=== PATIENT | female | born 1960 | race Caucasian/White ===

== ENCOUNTER 2019-01-14 14:39 | Observation (INO) ==
[~2019-01-14 14:39] MED LIST: APRESOLINE INJ 20 MG VIAL ONE
[2019-01-14] MEDS ORDERED: NS 1000 ML 1,000 ML IV ONE (14:51)
[2019-01-14] MEDS ORDERED: ZOFRAN INJ 4 MG VIAL IVP ONE (14:51)
--- NOTE | 2019-01-14 14:53 | DR.NAUSEAF ---
HPI Time Seen Time Seen by Provider: 01/14/19 14:51 Primary Care Physician Primary Care Physician: KAILEY MAY Complaints Chief Complaint Doctors Comments: Pt is a 58yo female who presents for nausea and vomiting for 3-4 days. She states that she it became its worst yesterday. She states that she has not been able to hold down any food. Chest pain that is sharp stabling, last 3 hours, been present for several months, She has been vomiting greenish stuff. RUQ pain that is also diffuse. She states that the pain worsened with fatty foods. Last colonscopy was 3 years ago and EGD 10yrs ago. Hx of Reflux Chief Complaint:: PT C/O N/V AND ABD PAIN TIMES 3 DAYS, PT HAS APROX 200 ML OF DARK GREEN BILE NOTED ,,BR Reviewed Nurses Notes Reviewed: Yes Source History Provided: Patient and EMS Mode of Arrival Mode of Arrival: Stretcher Timing Onset of Chief Complaint: 01/12/19 PMH PMH Past Medical History: Yes Past Medical History: COPD and Hypertension Past Medical History Comment: BACK PAIN, NERVES Past Surgical History: Yes Past Surgical History Comment: TUBAL Family History History of Family Medical Conditions: No Social History Does patient currently use any type of tobacco product: Yes Have you used tobacco products in the last 12 months: No Type of Tobacco Use: Cigarettes Does any household member use tobacco: No Alcohol Use: None Do you use any recreational Drugs:: No Lives With: Family Lives Where: Home infectious screening In the last 2 months have you had wt loss of >10#?: NO Have you had fever, night sweats or hemotysis?: No Have you traveled outside the country in the last 6 months?: No Isolation: Standard ROS Review of Systems Constitutional: Fever and Weakness Eyes: No Symptoms Reported ENTM: No Symptoms Reported Respiratoy: No Symptoms Reported Cardiovascular: Chest Pain Gastrointestinal/Abdominal: Abdominal Pain, Nausea, Vomiting and Food Intolerance Genitourinary: No Symptoms Reported Neurological: No Symptoms Reported Integumentary: No Symptoms Reported, See HPI and Rash (on her back that has disappeared) Hematologic/Lymphatic: No Symptoms Reported Endocrine: No Symptoms Reported Psychiatric: No Symptoms Reported All Other Systems: Reviewed and Negative PE Vital Signs Vitals: Temperature 97.2 F Pulse Rate 123 Respiratory Rate 18 Blood Pressure 139/76 O2 Sat by Pulse Oximetry 98 General Limitations: No Limitations General Appearance: Alert and In Distress Head Head Exam: Normal Inspection, Atraumatic and Normocephalic Eyes Eye exam: Normal Appearance and EOMI ENT ENT Exam: Normal Exam and Mucous Membranes Dry Neck Neck Exam: Normal Inspection and Full ROM Chest Chest Inspection: Normal Inspection Respiratory Respiratory Exam: Normal Lung Sounds Bilat Respiratory Exam: Bilateral: Clear to Auscultation Cardiovascular Cardiovascular Exam: Tachycardia Abdominal Exam Abdominal Exam: Normal Bowel Sounds, Soft and Tenderness (diffuse, and epigastric/RUQ) Abdominal Tenderness: RUQ, Diffuse and Moderate Extremities Extremities Exam: Normal Inspection and Full ROM Back Back Exam: Normal Inspection and Other Psychiatric Psychiatric Exam: Normal Affect and Normal Mood Skin Skin Exam: Warm, Dry, Intact and Normal Color MDM Additional Information Obtained Additional Information Obtained From: Old Records and Family Differential Diagnosis Differential Diagnosis: Considerations may Include:: Cholecystitis and PUD COURSE Reevaluation 1st: Unchanged (17:00 still in pain, looks in distress) 2nd: Unchanged (18:12 still in pain) 3rd: Improved (20:[address] Rader, pt appears improved) Consultation Called: 20:30 Call Returned: 20:30 Consultation Comments: Dr. Rader advised admission. Education/Counseling Education/Counseling: Patient, Family, Education and Counseling Educated On: Treatment, Diagnosis, Prognosis, Needs for Follow Up and Other ROR Labs Reviewed Laboratory Results Reviewed?: Yes Result Diagrams: 01/14/19 15:11 01/14/19 15:11 Laboratory: WBC 9.0 X10^3/uL (3.6-10.0) 01/14/19 15:11 RBC 5.19 X10^6/uL (3.5-5.4) 01/14/19 15:11 Hgb 16.9 g/dL (12.0-16.0) H 01/14/19 15:11 Hct 47.9 % (36.0-47.0) H 01/14/19 15:11 MCV 92.4 fL (80.0-100.0) 01/14/19 15:11 MCH 32.7 pg (27.0-34.0) 01/14/19 15:11 MCHC 35.4 g/dL (33.0-35.0) H 01/14/19 15:11 RDW 13.7 % (11.6-16.5) 01/14/19 15:11 Plt Count 267 X10^3/uL (150.0-450.0) 01/14/19 15:11 MPV 7.6 fL (7.4-11.0) 01/14/19 15:11 Neut % (Auto) 79.4 % (42.0-75.0) H 01/14/19 15:11 Lymph % (Auto) 13.6 % (21.0-51.0) L 01/14/19 15:11 [place] % (Auto) 5.5 % (0.0-13.0) 01/14/19 15:11 Eos % (Auto) 0.8 % (0.9-2.9) L 01/14/19 15:11 Baso % (Auto) 0.7 % (0.2-1.0) 01/14/19 15:11 Neut # (Auto) 7.2 x10^3/uL (2.2-4.8) H 01/14/19 15:11 Lymph # (Auto) 1.2 X10^3/uL (1.3-2.9) L 01/14/19 15:11 [place] # (Auto) 0.5 x10^3/uL (0.3-0.8) 01/14/19 15:11 Eos # (Auto) 0.1 x10^3/uL (0.0-0.2) 01/14/19 15:11 Baso # (Auto) 0.1 X10^3/uL (0.0-0.1) 01/14/19 15:11 Absolute Nucleated RBC 0.1 /100WBC 01/14/19 15:11 Sodium 140 mmol/L (136-145) 01/14/19 15:11 Corrected Sodium 141 mmol/L (136-145) 01/14/19 15:11 Potassium 4.3 mmol/L (3.5-5.1) 01/14/19 15:11 Chloride 104 mmol/L (98-107) 01/14/19 15:11 Carbon Dioxide 23.3 mmol/L (21-32) 01/14/19 15:11 BUN 6 mg/dL (7-18) L 01/14/19 15:11 Creatinine 0.79 mg/dL (0.55-1.02) 01/14/19 15:11 Est GFR (MDRD) Af Amer > 60 (>60) 01/14/19 15:11 Est GFR (MDRD) Non-Af > 60 (>60) 01/14/19 15:11 Glucose 121 mg/dL (65-99) H 01/14/19 15:11 Calcium 9.4 mg/dL (8.5-10.1) 01/14/19 15:11 Corrected Calcium TNP 01/14/19 15:11 Total Bilirubin 0.40 mg/dL (0.2-1.0) 01/14/19 15:11 AST 24 Units/L (15-37) 01/14/19 15:11 ALT 26 Units/L (12-78) 01/14/19 15:11 Alkaline Phosphatase 75 Units/L (46-116) 01/14/19 15:11 Creatine Kinase 137 Units/L (26-192) 01/14/19 23:56 CK-MB (CK-2) 1.1 ng/mL (0-4.0) 01/14/19 23:56 CK/CKMB % Calc 0.8 % (<4) 01/14/19 23:56 Troponin I < 0.02 ng/mL (0-1.5) 01/14/19 23:56 Total Protein 7.6 g/dL (6.4-8.2) 01/14/19 15:11 Albumin 3.8 g/dL (3.4-5.0) 01/14/19 15:11 Globulin 3.8 g/dL (2.5-4.5) 01/14/19 15:11 Albumin/Globulin Ratio 1.0 Ratio (1.1-2.1) L 01/14/19 15:11 Amylase 35 Units/L (25-115) 01/14/19 15:11 Lipase 104 Units/L (73-393) 01/14/19 15:11 Specimen Type Clean catch urine 01/14/19 20:30 Urine Color Yellow (YELLOW) 01/14/19 20:30 Urine Appearance Clear (CLEAR) 01/14/19 20:30 Urine pH 7.0 (5.0 - 8.0) 01/14/19 20:30 Ur Specific [place] 1.010 (1.000-1.030) 01/14/19 20:30 Urine Protein Negative (NEGATIVE) 01/14/19 20:30 Urine Glucose (UA) Negative (NEGATIVE) 01/14/19 20:30 Urine Ketones 1+ (NEGATIVE) 01/14/19 20:30 Urine Occult Blood Negative (NEGATIVE) 01/14/19 20:30 Urine Nitrite Negative (NEGATIVE) 01/14/19 20:30 Urine Bilirubin Negative (NEGATIVE) 01/14/19 20:30 Urine Urobilinogen Normal (NORMAL) 01/14/19 20:30 Ur Leukocyte Esterase Negative (NEGATIVE) 01/14/19 20:30 Service Date: 01/14/19 Service Time: 1826 CT abdomen and pelvis with contrast Indication: Nausea and vomiting. Abdominal pain. Bilious vomiting Technique: Helical images through the abdomen and pelvis after IV contrast. Coronal and sagittal reformats provided. Comparison: None available Findings: Limited images through the lower chest shows no acute abnormality. Review of bone windows shows spine DJD without destructive osseous lesion. Abdomen: The liver, gallbladder, spleen, pancreas, adrenal glands, stomach and small bowel show no acute abnormality. There is no acute colonic abnormality. The appendix is normal. Scattered aortic and branch vessel calcifications are noted. Right gonadal vein thrombus suspected on axial image 54. Scarring seen in the left kidney, without hydroureteronephrosis. There is nonobstructing left renal stone. The right kidney is normal. Pelvis: The urinary bladder, rectum are normal. Uterus and adnexa shows no acute abnormality. Impression: 1. Probable thrombus in the right gonadal vein. 2. Nonobstructing left lower pole renal stone 3. No other acute abnormality identified. Reported By: Other Results Comments: Study: Right upper quadrant abdominal ultrasound Comparison: None. Technique: Multiple arguelles scale and color flow Doppler images of the right upper quadrant were obtained. Findings: The liver demonstrates mild diffuse increased parenchymal echogenicity and measures 15 cm. Interrogated hepatic vasculature demonstrates normal color Doppler and spectral analysis. No focal intraparenchymal mass or intrahepatic biliary ductal dilatation can be observed. The gallbladder fails to demonstrate evidence for cholelithiasis or layering sludge. The common bile duct is unremarkable measuring 0.2 cm. No pericholecystic fluid or gallbladder wall thickening can be observed. The right kidney appears normal in size without focal parenchymal mass or nephrolithiasis. The right kidney measurers 10 cm. No hydronephrosis or perirenal fluid can be observed. The pancreatic head and body are unremarkable. The pancreatic tail is largely obscured by overlying bowel gas. IMPRESSION: 1. Hepatic steatosis, correlate with serology. 2. Unremarkable gallbladder. EKG Rate: 91 [place]: Normal Rhythm: NSR Block: None Hypertrophy: LAE ST: Normal Opioid Opioid Risk Tool Total: 0 Total Score Risk Category: Low Risk Copyright: Eric ATKINSON predicting aberrant behaviors Diagnosis Narrative Support Text: Admission accepted and discussed with Dr. Holland ( 23;45) for consult by Dr. Rader plan and detail discussed with him.
[2019-01-14] MEDS ORDERED: NS 1000 ML 1,000 ML ONE (14:56)
[2019-01-14] MEDS ORDERED: ZOFRAN INJ 4 MG VIAL ONE (14:56)
[2019-01-14 15:20] LABS: BASOPHILS # (AUTO) 0.1 X10^3/uL (0.0-0.1); BASOPHILS % (AUTO) 0.7 % (0.2-1.0); EOSINOPHILS # (AUTO) 0.1 x10^3/uL (0.0-0.2); EOSINOPHILS % (AUTO) 0.8 % (0.9-2.9); HEMATOCRIT 47.9 % (36.0-47.0); HEMOGLOBIN 16.9 g/dL (12.0-16.0); LYMPHOCYTES # (AUTO) 1.2 X10^3/uL (1.3-2.9); LYMPHOCYTES % (AUTO) 13.6 % (21.0-51.0); MEAN CORPUSCULAR HEMOGLOBIN 32.7 pg (27.0-34.0); MEAN CORPUSCULAR HGB CONC 35.4 g/dL (33.0-35.0); MEAN CORPUSCULAR VOLUME 92.4 fL (80.0-100.0); MEAN PLATELET VOLUME 7.6 fL (7.4-11.0); MONOCYTES # (AUTO) 0.5 x10^3/uL (0.3-0.8); MONOCYTES % (AUTO) 5.5 % (0.0-13.0); NEUTROPHILS # (AUTO) 7.2 x10^3/uL (2.2-4.8); NEUTROPHILS % (AUTO) 79.4 % (42.0-75.0); PLATELET COUNT 267 X10^3/uL (150.0-450.0); RED BLOOD COUNT 5.19 X10^6/uL (3.5-5.4); RED CELL DISTRIBUTION WIDTH 13.7 % (11.6-16.5)
[2019-01-14] MEDS ORDERED: APRESOLINE INJ 20 MG VIAL IVP ONE (15:38)
[2019-01-14] MEDS ORDERED: APRESOLINE INJ 20 MG VIAL ONE (15:39)
[2019-01-14 15:40] LABS: ALANINE AMINOTRANSFERASE 26 Units/L (12-78); ALBUMIN 3.8 g/dL (3.4-5.0); ALKALINE PHOSPHATASE 75 Units/L (46-116); ASPARTATE AMINO TRANSFERASE 24 Units/L (15-37); BLOOD UREA NITROGEN 6 mg/dL (7-18); CALCIUM 9.4 mg/dL (8.5-10.1); CARBON DIOXIDE 23.3 mmol/L (21-32); CHLORIDE 104 mmol/L (98-107); COR NA(FOR HYPERGLY) 141 mmol/L (136-145); CREATININE 0.79 mg/dL (0.55-1.02); SODIUM 140 mmol/L (136-145); TOTAL PROTEIN 7.6 g/dL (6.4-8.2); eGFR NON BLACK RACES > 60 (>60)
[2019-01-14 15:48] LABS: CREATINE KINASE 49 Units/L (26-192); CREATINE KINASE MB < 1.0 ng/mL (0-4.0); TROPONIN I < 0.02 ng/mL (0-1.5)
[2019-01-14] MEDS ORDERED: MORPHINE SULFATE INJ 2 MG INJ ONE ×3 (16:34→20:07)
[2019-01-14] MEDS ORDERED: MORPHINE SULFATE INJ 2 MG INJ IVP ONE ×3 (16:38→20:05)
[2019-01-14] MEDS ORDERED: PHENERGAN INJ 25 MG IM ONE ×4 (16:41→23:48)
[2019-01-14] MEDS ORDERED: PHENERGAN INJ 25 MG IM PRN (16:51)
[2019-01-14 18:43] LABS: AMYLASE 35 Units/L (25-115); LIPASE 104 Units/L (73-393)
[2019-01-14 19:52] LABS: CKMB % 3.3 % (<4); CREATINE KINASE 30 Units/L (26-192); CREATINE KINASE MB < 1.0 ng/mL (0-4.0); TROPONIN I < 0.02 ng/mL (0-1.5)
--- NOTE | 2019-01-14 19:53 | CT ---
CT abdomen and pelvis with contrast Indication: Nausea and vomiting. Abdominal pain. Bilious vomiting Technique: Helical images through the abdomen and pelvis after IV contrast. Coronal and sagittal reformats provided. Comparison: None available Findings: Limited images through the lower chest shows no acute abnormality. Review of bone windows shows spine DJD without destructive osseous lesion. Abdomen: The liver, gallbladder, spleen, pancreas, adrenal glands, stomach and small bowel show no acute abnormality. There is no acute colonic abnormality. The appendix is normal. Scattered aortic and branch vessel calcifications are noted. Right gonadal vein thrombus suspected on axial image 54. Scarring seen in the left kidney, without hydroureteronephrosis. There is nonobstructing left renal stone. The right kidney is normal. Pelvis: The urinary bladder, rectum are normal. Uterus and adnexa shows no acute abnormality. Impression: 1. Probable thrombus in the right gonadal vein. 2. Nonobstructing left lower pole renal stone 3. No other acute abnormality identified. Reported By:
[2019-01-14 20:40] LABS: BILIRUBIN,URINE NEGATIVE (NEGATIVE); BLOOD/HEMOGLOBIN,URINE NEGATIVE (NEGATIVE); GLUCOSE, URINE NEGATIVE (NEGATIVE); KETONES,URINE 1+ (NEGATIVE); LEUKOCYTE ESTERASE ,URINE NEGATIVE (NEGATIVE); NITRITES,URINE NEGATIVE (NEGATIVE); PROTEIN,URINE NEGATIVE (NEGATIVE); UROBILINOGEN,URINE NORMAL (NORMAL)
[2019-01-14 20:49] LABS: APPEARANCE,URINE CLEAR (CLEAR); COLOR,URINE YELLOW (YELLOW)
[2019-01-14] MEDS ORDERED: PROTONIX INJ 40 MG VIAL IVP ONE (20:50)
[2019-01-14] MEDS ORDERED: PROTONIX INJ 40 MG VIAL ONE (20:52)
--- NOTE | 2019-01-14 21:53 | US ---
HISTORY: 58-year-old female with abdominal pain, nausea vomiting. Study: Right upper quadrant abdominal ultrasound Comparison: None. Technique: Multiple arguelles scale and color flow Doppler images of the right upper quadrant were obtained. Findings: The liver demonstrates mild diffuse increased parenchymal echogenicity and measures 15 cm. Interrogated hepatic vasculature demonstrates normal color Doppler and spectral analysis. No focal intraparenchymal mass or intrahepatic biliary ductal dilatation can be observed. The gallbladder fails to demonstrate evidence for cholelithiasis or layering sludge. The common bile duct is unremarkable measuring 0.2 cm. No pericholecystic fluid or gallbladder wall thickening can be observed. The right kidney appears normal in size without focal parenchymal mass or nephrolithiasis. The right kidney measurers 10 cm. No hydronephrosis or perirenal fluid can be observed. The pancreatic head and body are unremarkable. The pancreatic tail is largely obscured by overlying bowel gas. IMPRESSION: 1. Hepatic steatosis, correlate with serology. 2. Unremarkable gallbladder. Reported By:
[2019-01-14] MEDS: MORPHINE SULFATE INJ 4 MG IVP PRN (23:50)
[2019-01-14] MEDS ORDERED: ROCEPHIN VIAL 1 GRAM IM ONE (23:55)
[2019-01-14] MEDS ORDERED: APRESOLINE INJ 20 MG VIAL IVP PRN (23:59)
[2019-01-15] MEDS ORDERED: ROCEPHIN VIAL 1 GRAM IVP ONE
[2019-01-15] MEDS ORDERED: ROCEPHIN VIAL 1 GRAM ONE (00:01)
[2019-01-15] MEDS: NS 1000 ML 1,000 ML IV SCH ×3 (00:03→16:57)
[2019-01-15 00:36] LABS: CKMB % 0.8 % (<4); CREATINE KINASE 137 Units/L (26-192); CREATINE KINASE MB 1.1 ng/mL (0-4.0); TROPONIN I < 0.02 ng/mL (0-1.5)
[2019-01-15] MEDS ORDERED: MOTRIN TAB 400 MG PO ONE ×2 (00:53→00:54)
[2019-01-15 02:12] VITALS: BMI 26.6
[2019-01-15] MEDS: XOPENEX 1.25 MG/3 ML NEBULE NEB SCH ×4 (05:50→21:20)
[2019-01-15 06:05] LABS: BASOPHILS # (AUTO) 0.1 X10^3/uL (0.0-0.1); BASOPHILS % (AUTO) 0.9 % (0.2-1.0); EOSINOPHILS % (AUTO) 0.4 % (0.9-2.9); HEMOGLOBIN 14.3 g/dL (12.0-16.0); LYMPHOCYTES # (AUTO) 2.5 X10^3/uL (1.3-2.9); LYMPHOCYTES % (AUTO) 32.2 % (21.0-51.0); MEAN CORPUSCULAR HEMOGLOBIN 32.3 pg (27.0-34.0); MEAN CORPUSCULAR HGB CONC 34.9 g/dL (33.0-35.0); MEAN CORPUSCULAR VOLUME 92.4 fL (80.0-100.0); MEAN PLATELET VOLUME 7.7 fL (7.4-11.0); MONOCYTES # (AUTO) 0.7 x10^3/uL (0.3-0.8); MONOCYTES % (AUTO) 9.3 % (0.0-13.0); NEUTROPHILS # (AUTO) 4.5 x10^3/uL (2.2-4.8); NEUTROPHILS % (AUTO) 57.2 % (42.0-75.0); PLATELET COUNT 229 X10^3/uL (150.0-450.0); RED BLOOD COUNT 4.44 X10^6/uL (3.5-5.4); RED CELL DISTRIBUTION WIDTH 13.6 % (11.6-16.5); WHITE BLOOD COUNT 7.9 X10^3/uL (3.6-10.0)
[2019-01-15 06:18] LABS: ALANINE AMINOTRANSFERASE 17 Units/L (12-78); ALBUMIN 3.1 g/dL (3.4-5.0); ALKALINE PHOSPHATASE 56 Units/L (46-116); ASPARTATE AMINO TRANSFERASE 20 Units/L (15-37); BLOOD UREA NITROGEN 6 mg/dL (7-18); CALCIUM 8.3 mg/dL (8.5-10.1); CARBON DIOXIDE 23.2 mmol/L (21-32); CHLORIDE 108 mmol/L (98-107); CREATININE 0.84 mg/dL (0.55-1.02); SODIUM 141 mmol/L (136-145); TOTAL PROTEIN 6.5 g/dL (6.4-8.2); eGFR NON BLACK RACES > 60 (>60)
[2019-01-15] MEDS ORDERED: K-RIDER 10 MEQ/NS 100 ML 10 MEQ/100 ML BAG IV PRN (06:27)
[2019-01-15] MEDS ORDERED: K-DUR TAB 20 MEQ PO PRN (06:27)
[2019-01-15] MEDS ORDERED: MICRO K EXTEN CAP 10 MEQ PO PRN (06:27)
[2019-01-15] MEDS ORDERED: POTASSIUM CHL 60 MEQ/NS 0.45% 500 ML IV PRN (06:27)
[2019-01-15] MEDS ORDERED: POTASSIUM CHL 40 MEQ/NS 0.45% 500 ML IV PRN (06:27)
[2019-01-15] MEDS ORDERED: MAGNESIUM SULFATE 1 GRAM/100 mL PREMIX 1 GM/100 ML BAG IV PRN (06:27)
[2019-01-15] MEDS ORDERED: KLOR-CON PO PRN (06:27)
[2019-01-15] MEDS ORDERED: POTASSIUM CHLORIDE LIQ 20 MEQ UDC PO PRN (06:27)
[2019-01-15] MEDS: MORPHINE SULFATE INJ 4 MG IVP PRN ×4 (06:38→20:27)
[2019-01-15] MEDS ORDERED: PHARMACY CONSULT - DOSE _____ XX SCH (09:00)
[2019-01-15] MEDS ORDERED: POTASSIUM ACETATE IV ONE ×2 (09:02)
[2019-01-15] MEDS ORDERED: NS IV ONE ×2 (09:02)
[2019-01-15] MEDS ORDERED: VERSED ONE (10:41)
[2019-01-15] MEDS ORDERED: DIPRIVAN VIAL ONE (10:41)
[2019-01-15] MEDS ORDERED: DIPRIVAN VIAL 20 ML ONE (11:04)
[2019-01-15] MEDS ORDERED: XYLOCAINE-MPF 1% ONE (11:05)
--- NOTE | 2019-01-15 11:38 | OR.IMMED ---
Immediate Post-Op Note - Immediate Post-Op Note Pre-Op Diagnosis: PUD, Gastritis . Post-Op Diagnosis: moderate gastritis and esophagitis grade 2. Procedure: EGD with Bx Surgeon/Eligibility Supervisor: Marline Specimens Removed: gastric and duodenal Bx Drains: NONE Complications: no Condition: Stable (will follow in the office in one week)
[2019-01-15] MEDS: ZOFRAN INJ 4 MG VIAL IVP PRN (11:58)
[2019-01-15] MEDS ORDERED: STERILE WATER IRRIGATION ONE (14:12)
[2019-01-15] MEDS ORDERED: NICOTINE PATCH ONE (17:33)
[2019-01-15] MEDS: NICOTINE PATCH TD SCH (17:34)
[2019-01-15] MEDS ORDERED: ATARAX TAB 25 MG PO PRN (19:44)
[2019-01-15] MEDS ORDERED: TESSALON PERLES PO PRN (19:44)
[2019-01-15] MEDS: ATIVAN TAB 1 MG PO SCH (21:21)
[2019-01-15] MEDS: LYRICA CAP 150 MG PO SCH (21:21)
[2019-01-15] MEDS: PREDNISONE TAB 20 MG PO SCH (21:21)
[2019-01-16] MEDS: NS 1000 ML 1,000 ML IV SCH ×6 (02:10→19:08)
[2019-01-16] MEDS: XOPENEX 1.25 MG/3 ML NEBULE NEB SCH ×3 (05:52→20:06)
[2019-01-16] MEDS: ATIVAN TAB 1 MG PO SCH ×3 (06:21→21:01)
[2019-01-16 06:35] LABS: BASOPHILS % (AUTO) 0.4 % (0.2-1.0); EOSINOPHILS % (AUTO) 0.1 % (0.9-2.9); HEMOGLOBIN 13.8 g/dL (12.0-16.0); LYMPHOCYTES % (AUTO) 13.1 % (21.0-51.0); MEAN CORPUSCULAR HEMOGLOBIN 32.6 pg (27.0-34.0); MEAN CORPUSCULAR HGB CONC 34.5 g/dL (33.0-35.0); MEAN CORPUSCULAR VOLUME 94.4 fL (80.0-100.0); MEAN PLATELET VOLUME 7.9 fL (7.4-11.0); MONOCYTES # (AUTO) 0.2 x10^3/uL (0.3-0.8); MONOCYTES % (AUTO) 2.9 % (0.0-13.0); NEUTROPHILS # (AUTO) 6.7 x10^3/uL (2.2-4.8); NEUTROPHILS % (AUTO) 83.5 % (42.0-75.0); PLATELET COUNT 217 X10^3/uL (150.0-450.0); RED BLOOD COUNT 4.24 X10^6/uL (3.5-5.4); RED CELL DISTRIBUTION WIDTH 13.7 % (11.6-16.5)
[2019-01-16 06:50] LABS: ALANINE AMINOTRANSFERASE 20 Units/L (12-78); ALBUMIN 2.8 g/dL (3.4-5.0); ALKALINE PHOSPHATASE 52 Units/L (46-116); ASPARTATE AMINO TRANSFERASE 20 Units/L (15-37); BLOOD UREA NITROGEN 5 mg/dL (7-18); CALCIUM 8.5 mg/dL (8.5-10.1); CARBON DIOXIDE 21.3 mmol/L (21-32); CHLORIDE 109 mmol/L (98-107); COR CA(FOR HYPOALB) 9.5 mg/dL (8.5-10.1); COR NA(FOR HYPERGLY) 141 mmol/L (136-145); CREATININE 0.75 mg/dL (0.55-1.02); SODIUM 141 mmol/L (136-145); TOTAL PROTEIN 6.2 g/dL (6.4-8.2); eGFR NON BLACK RACES > 60 (>60)
[2019-01-16] MEDS: PREDNISONE TAB 20 MG PO SCH ×2 (08:47→20:10)
[2019-01-16] MEDS: PriLOSEC PO SCH (08:47)
[2019-01-16] MEDS: NICOTINE PATCH TD SCH (08:47)
[2019-01-16] MEDS: LYRICA CAP 150 MG PO SCH ×2 (08:48→20:09)
[2019-01-16] MEDS: LASIX PO SCH (08:48)
[2019-01-16] MEDS ORDERED: CYMBALTA PO SCH (09:00)
--- NOTE | 2019-01-16 09:46 | DR.H&P ---
H&P - History & Physical for Day of: H&P Date: 01/14/19 - Chief Complaint Chief Complaint: NAUSEA, VOMITING, CHEST PAIN - History of Present Illness History of Present Illness: IS A 58 YEAR OLD PATIENT OF OURS WHO PRESENTED TO THE ER WITH COMPLAINTS OF NAUSEA, VOMITING, AND ABDOMINAL PAIN FOR THE PAST THREE DAYS. SHE IS ACTIVELY VOMITING ON ARRIVAL TO THER ER. THERE IS APPROXIMATELY 200ML DARK GREEN BILE NOTED TO EMESIS BAG. SYMPTOMS BECAME WORSE YESTERDAY. SHE ALSO REPORTS CHEST PAIN FOR THE LAST THREE HOURS AND RUQ PAIN. PAIN IS WORSENED BY FATTY FOODS. ON ARRIVAL TO THE ER, VITALS WERE 97.2-94-20-100%-175/89. LABS WERE OBTAINED. ABNORMAL LAB VALUES INCLUDE THE FOLLOWING: HGB 16.9M HCT 47.9, BUN 6, GLUCOSE 121. CARDIAC ENZYMES WITHIN NORMAL LIMITS. URINALYSIS IS UNREMARKABLE. BLOOD CULTURES ARE PENDING. EKG OBTAINED AND REVEALED: SINUS RHYTHM WITH HR 91. ABDOMEN/PELVIS CT REVEALED: Probable thrombus in the right gonadal vein. Nonobstructing left lower pole renal stone. No other acute abnormality identified. A GALLBLADDER ULTRASOUND WAS OBTAINED AND REVEALED: Hepatic steatosis, correlate with serology. Unremarkable gallbladder. CONSULTED WITH PATIENT AND PLANS FOR AN EGD IN THE MORNING. SHE WAS ADMITTED FOR FURTHER EVALUATION AND TREATMENT OF INTRACTABLE NAUSEA AND VOMITING. SHE WAS STARTED ON NORMAL SALINE AT 125ML/HR, ZOFRAN 4MG IV Q6H PRN, AND HOME MEDICATIONS WERE RESUMED. WE WILL OBTAIN SERIAL CARDIAC ENZYMES AND EKGS. OTHERWISE, WE PLAN TO FOLLOW UP WITH AM LABS AND CONTINUE TO MONITOR. - Past Medical History Past Medical History: Hypertension, COPD - Past Surgical History Surgical History: CAPABILITY LEAD Surgery - Family History Family Medical History: Diabetes Mellitus, Cancer, [place], Heart Failure, Hypertension - Social History Does patient currently use any type of tobacco product: Yes Have you used tobacco products in the last 12 months: Yes Type of Tobacco Use: Cigarettes How many years tobacco product used: 44 Packs per day or dips/chews per day: 2 Does any household member use tobacco: (Lives Alone) Alcohol Use: None Drug Use: None - Medications Home Medications: gabapentin [From Neurontin] Allergy (Verified 01/14/19 14:41) CONTINUE taking the following medications albuterol sulfate 1 vial INHALATION Q4H PRN 01/15/19 [History] albuterol sulfate [ProAir HFA] 2 puff INHALATION Q4HR 01/15/19 [History] benzonatate 2 cap PO TID PRN 01/15/19 [History] duloxetine 1 cap PO DAILY 01/15/19 [History] furosemide 1 tab PO DAILY 01/15/19 [History] hydroxyzine HCl 1 tab PO TID PRN 01/15/19 [History] ipratropium-albuterol [Combivent Respimat] 1 puff INHALATION QID 01/15/19 [History] lorazepam 1 tab PO TID 01/15/19 [History] omeprazole 1 cap PO DAILY 01/15/19 [History] oxycodone-acetaminophen 1 tab PO Q5H PRN 01/15/19 [History] phentermine 0.5 tab PO DAILY 01/15/19 [History] prednisone 1 tab PO BID 01/15/19 [History] pregabalin [Lyrica] 1 cap PO BID 01/15/19 [History] - Review of Systems Constitutional: Weakness Eyes: No Symptoms Reported ENT: No Symptoms Reported Respiratory: No Symptoms Reported Cardiovascular: Chest Pain Gastrointestinal: Nausea, Vomiting, Abdominal Pain Genitourinary: No Symptoms Reported Musculoskeletal: No Symptoms Reported Skin: No Symptoms Reported Neurological: Weakness - Physical Exam Vital Signs: Temperature 98.9 F Pulse Rate [Brachial] 94 Pulse Rate 85 Respiratory Rate 25 Blood Pressure [Left Arm] 117/66 Blood Pressure 119/68 O2 Sat by Pulse Oximetry 89 Oriented: Normal Eyes: Normal Ear: Normal Nose: Normal Throat: Normal Respiratory: Diminished Throughout Cardiovascular: Normal. negative: S3, S4, Murmur : Normal Auscultation: Bowel Sounds: Normal Palpation: Normal Tenderness: Diffuse, RUQ, Moderate. negative: Rebound, Guarding, Rigidity Skin: Normal Musculoskeletal: Normal Psychiatric: Normal Mood Description: Calm Affect: Normal Speech Pattern: Clear - Assessment/Plan (1) Intractable abdominal pain Status: Acute Plan: ADMIT, IV FLUIDS, IV ZOFRAN, PAIN CONTROL, CONTINUE TO MONITOR (2) Intractable nausea and vomiting Qualifiers: Vomiting type: unspecified Qualified Code(s): R11.2 - Nausea with vomiting, unspecified Status: Acute (3) Chest pain Qualifiers: Chest pain type: unspecified Qualified Code(s): R07.9 - Chest pain, unspecified Status: Acute Plan: SERIAL CARDIAC ENZYMES AND EKGS, CONTINUE TO MONITOR - Allergies Allergies/Adverse Reactions: Allergies Allergy/AdvReac Type Severity Reaction Status Date / Time gabapentin [From Neurontin] Allergy Verified 01/14/19 14:41
[2019-01-16] MEDS ORDERED: TORADOL 15 MG VIAL IVP ONE (12:01)
[2019-01-16] MEDS ORDERED: TORADOL 15 MG VIAL ONE (12:02)
[2019-01-16] MEDS: PERCOCET TAB 5/325 MG PO PRN ×2 (13:47→19:11)
--- NOTE | 2019-01-16 13:58 | NM ---
History: Abdominal pain and nausea and vomiting for 2 days Study: Hepatobiliary scan with ejection fraction Technique: 5.6 mCi technetium 99 M Choletec was administered. 8 oz of Ensure Plus was utilized for gallbladder ejection fraction. Findings: There is a normal hepatic g. There is prompt excretion into the biliary tree and there is prompt visualization of activity in the duodenum by 20 min. Ejection fraction calculates to be 73.4%. Impression: Normal hepatobiliary scan and ejection fraction Reported By:
[2019-01-16] MEDS: ZOFRAN INJ 4 MG VIAL IVP PRN (14:35)
[2019-01-16 15:46] LABS: CREATINE KINASE 98 Units/L (26-192); CREATINE KINASE MB < 1.0 ng/mL (0-4.0); TROPONIN I < 0.02 ng/mL (0-1.5)
--- NOTE | 2019-01-16 21:34 | PCM.PROG ---
Progress Note - Progress Note for Day of Date of Exam: 01/15/19 - Subjective Subjective: WAS ADMITTED FOR INTRACTABLE ABDOMINAL PAIN. TODAY, SHE IS ALERT AND ORIENTED, LYING IN BED ON MORNING ROUNDS. SHE CONTINUES WITH COMPLAINTS OF RUQ PAIN THIS MORNING. ON EXAMINATION, HEART IS REGULAR IN RATE AND RHYTHM. BILATERAL LUNGS ARE NOTED WITH DIMINISHED LUNG SOUNDS THROUGHOUT. ABDOMEN IS ROUND, SOFT, AND NOTED WITH RUQ TENDERNESS. NORMAL BOWEL SOUNDS NOTED IN ALL QUADRANTS. HER VITALS THIS MORNING ARE: 98.2-86-24-94%-107/68. LABS WERE OBTAINED. ABNORMAL LAB VALUES INCLUDE THE FOLLOWING: POTASSIUM 3.3, CHLORIDE 108, BUN 6, CALCIUM 8.3, ALBUMIN 3.1. CARDIAC ENZYMES HAVE BEEN WITHIN NORMAL LIMITS. NO CHANGES NOTED TO EKGS. BLOOD CULTURES ARE PENDING. CONSULTED WITH PATIENT AND PLANS FOR AN UPPER ENDOSCOPY THIS MORNING. WE WELLS IN AGREEMENT WITH PLAN. WE WILL ALSO OBTIAN A HIDA SCAN IN THE MORNING. OTHERWISE, WE WILL FOLLOW UP WITH AM LABS AND CONTINUE TO MONITOR. - Past Medical Family Social History Past Med/Fam/Surg Hx: No changes since H&P Allergies: Allergies gabapentin [From Neurontin] Allergy (Verified 01/14/19 14:41) - Review of Systems ROS: No change since H&P - Vital Signs and I&O's Vital Signs: Temperature 98.1 F Pulse Rate [Brachial] 94 Pulse Rate 101 Respiratory Rate 18 Blood Pressure [Left Arm] 117/66 Blood Pressure 136/75 O2 Sat by Pulse Oximetry 96 Intake and Output: Intake & Output 01/14/19 01/15/19 01/16/19 01/17/19 11:59 11:59 11:59 11:59 Intake Total 750 / 750 3620 / 3620 Balance 750 / 750 3620 / 3620 - Physical Exam Oriented: Normal Eyes: Normal Ear: Normal Nose: Normal Throat: Normal Respiratory: Normal Cardiovascular: Normal. negative: S3, S4, Murmur : Normal Auscultation: Bowel Sounds: Normal Palpation: Normal Tenderness: Diffuse, RUQ, Moderate. negative: Rebound, Guarding, Rigidity Skin: Normal Musculoskeletal: Normal Psychiatric: Normal Mood Description: Calm Affect: Normal Speech Pattern: Clear - Laboratory and Diagnostics Result Diagrams: 01/16/19 05:28 01/16/19 05:28 Labs: Laboratory WBC 8.0 X10^3/uL (3.6-10.0) 01/16/19 05:28 RBC 4.24 X10^6/uL (3.5-5.4) 01/16/19 05:28 Hgb 13.8 g/dL (12.0-16.0) 01/16/19 05:28 Hct 40.0 % (36.0-47.0) 01/16/19 05:28 MCV 94.4 fL (80.0-100.0) 01/16/19 05:28 MCH 32.6 pg (27.0-34.0) 01/16/19 05:28 MCHC 34.5 g/dL (33.0-35.0) 01/16/19 05:28 RDW 13.7 % (11.6-16.5) 01/16/19 05:28 Plt Count 217 X10^3/uL (150.0-450.0) 01/16/19 05:28 MPV 7.9 fL (7.4-11.0) 01/16/19 05:28 Neut % (Auto) 83.5 % (42.0-75.0) H 01/16/19 05:28 Lymph % (Auto) 13.1 % (21.0-51.0) L 01/16/19 05:28 [place] % (Auto) 2.9 % (0.0-13.0) 01/16/19 05:28 Eos % (Auto) 0.1 % (0.9-2.9) L 01/16/19 05:28 Baso % (Auto) 0.4 % (0.2-1.0) 01/16/19 05:28 Neut # (Auto) 6.7 x10^3/uL (2.2-4.8) H 01/16/19 05:28 Lymph # (Auto) 1.0 X10^3/uL (1.3-2.9) L 01/16/19 05:28 [place] # (Auto) 0.2 x10^3/uL (0.3-0.8) L 01/16/19 05:28 Eos # (Auto) 0.0 x10^3/uL (0.0-0.2) 01/16/19 05:28 Baso # (Auto) 0.0 X10^3/uL (0.0-0.1) 01/16/19 05:28 Absolute Nucleated RBC 0.1 /100WBC 01/16/19 05:28 Sodium 141 mmol/L (136-145) 01/16/19 05:28 Corrected Sodium 141 mmol/L (136-145) 01/16/19 05:28 Potassium 4.3 mmol/L (3.5-5.1) 01/16/19 05:28 Chloride 109 mmol/L (98-107) H 01/16/19 05:28 Carbon Dioxide 21.3 mmol/L (21-32) 01/16/19 05:28 BUN 5 mg/dL (7-18) L 01/16/19 05:28 Creatinine 0.75 mg/dL (0.55-1.02) 01/16/19 05:28 Est GFR (MDRD) Af Amer > 60 (>60) 01/16/19 05:28 Est GFR (MDRD) Non-Af > 60 (>60) 01/16/19 05:28 Glucose 119 mg/dL (65-99) H 01/16/19 05:28 Calcium 8.5 mg/dL (8.5-10.1) 01/16/19 05:28 Corrected Calcium 9.5 mg/dL (8.5-10.1) 01/16/19 05:28 Magnesium 1.9 mg/dL (1.7-2.9) 01/15/19 05:34 Total Bilirubin 0.30 mg/dL (0.2-1.0) 01/16/19 05:28 AST 20 Units/L (15-37) 01/16/19 05:28 ALT 20 Units/L (12-78) 01/16/19 05:28 Alkaline Phosphatase 52 Units/L (46-116) 01/16/19 05:28 Creatine Kinase 98 Units/L (26-192) 01/16/19 15:09 CK-MB (CK-2) < 1.0 ng/mL (0-4.0) 01/16/19 15:09 CK/CKMB % Calc 1.0 % (<4) 01/16/19 15:09 Troponin I < 0.02 ng/mL (0-1.5) 01/16/19 15:09 Total Protein 6.2 g/dL (6.4-8.2) L 01/16/19 05:28 Albumin 2.8 g/dL (3.4-5.0) L 01/16/19 05:28 Globulin 3.4 g/dL (2.5-4.5) 01/16/19 05:28 Albumin/Globulin Ratio 0.8 Ratio (1.1-2.1) L 01/16/19 05:28 Amylase 35 Units/L (25-115) 01/14/19 15:11 Lipase 104 Units/L (73-393) 01/14/19 15:11 Specimen Type Clean catch urine 01/14/19 20:30 Urine Color Yellow (YELLOW) 01/14/19 20:30 Urine Appearance Clear (CLEAR) 01/14/19 20:30 Urine pH 7.0 (5.0 - 8.0) 01/14/19 20:30 Ur Specific [place] 1.010 (1.000-1.030) 01/14/19 20:30 Urine Protein Negative (NEGATIVE) 01/14/19 20:30 Urine Glucose (UA) Negative (NEGATIVE) 01/14/19 20:30 Urine Ketones 1+ (NEGATIVE) 01/14/19 20:30 Urine Occult Blood Negative (NEGATIVE) 01/14/19 20:30 Urine Nitrite Negative (NEGATIVE) 01/14/19 20:30 Urine Bilirubin Negative (NEGATIVE) 01/14/19 20:30 Urine Urobilinogen Normal (NORMAL) 01/14/19 20:30 Ur Leukocyte Esterase Negative (NEGATIVE) 01/14/19 20:30 Tissue Pathology To follow 01/15/19 11:37 - Plan (1) Intractable abdominal pain Status: Acute Plan: HIDA SCAN IN AM, IV FLUIDS, IV ZOFRAN, PAIN CONTROL, CONTINUE TO MONITOR (2) Intractable nausea and vomiting Status: Acute Qualifiers: Vomiting type: unspecified Qualified Code(s): R11.2 - Nausea with vomiting, unspecified (3) Chest pain Status: Acute Qualifiers: Chest pain type: unspecified Qualified Code(s): R07.9 - Chest pain, unspecified Plan: SERIAL CARDIAC ENZYMES AND EKGS, CONTINUE TO MONITOR
[2019-01-17] MEDS: PERCOCET TAB 5/325 MG PO PRN ×3 (01:25→13:25)
[2019-01-17] MEDS: NS 1000 ML 1,000 ML IV SCH ×3 (01:45→08:21)
[2019-01-17] MEDS: ATIVAN TAB 1 MG PO SCH ×2 (05:15→13:25)
[2019-01-17] MEDS: XOPENEX 1.25 MG/3 ML NEBULE NEB SCH (06:01)
[2019-01-17 06:58] LABS: BASOPHILS % (AUTO) 0.4 % (0.2-1.0); HEMATOCRIT 39.6 % (36.0-47.0); HEMOGLOBIN 13.7 g/dL (12.0-16.0); MEAN CORPUSCULAR HEMOGLOBIN 32.5 pg (27.0-34.0); MEAN CORPUSCULAR HGB CONC 34.6 g/dL (33.0-35.0); MEAN CORPUSCULAR VOLUME 93.9 fL (80.0-100.0); MONOCYTES # (AUTO) 0.6 x10^3/uL (0.3-0.8); MONOCYTES % (AUTO) 7.1 % (0.0-13.0); NEUTROPHILS % (AUTO) 80.5 % (42.0-75.0); PLATELET COUNT 208 X10^3/uL (150.0-450.0); RED BLOOD COUNT 4.22 X10^6/uL (3.5-5.4); RED CELL DISTRIBUTION WIDTH 13.2 % (11.6-16.5); WHITE BLOOD COUNT 8.7 X10^3/uL (3.6-10.0)
[2019-01-17 07:04] LABS: ALANINE AMINOTRANSFERASE 23 Units/L (12-78); ALBUMIN 2.9 g/dL (3.4-5.0); ALKALINE PHOSPHATASE 65 Units/L (46-116); ASPARTATE AMINO TRANSFERASE 27 Units/L (15-37); BLOOD UREA NITROGEN 6 mg/dL (7-18); CALCIUM 8.5 mg/dL (8.5-10.1); CARBON DIOXIDE 20.3 mmol/L (21-32); CHLORIDE 107 mmol/L (98-107); COR CA(FOR HYPOALB) 9.4 mg/dL (8.5-10.1); COR NA(FOR HYPERGLY) 141 mmol/L (136-145); CREATININE 0.87 mg/dL (0.55-1.02); SODIUM 139 mmol/L (136-145); TOTAL PROTEIN 6.4 g/dL (6.4-8.2); eGFR NON BLACK RACES > 60 (>60)
[2019-01-17] MEDS: PriLOSEC PO SCH (08:14)
[2019-01-17] MEDS: LASIX PO SCH (08:14)
[2019-01-17] MEDS: LYRICA CAP 150 MG PO SCH (08:14)
[2019-01-17] MEDS: NICOTINE PATCH TD SCH (08:15)
[2019-01-17] MEDS: PREDNISONE TAB 20 MG PO SCH (08:15)
[2019-01-17] MEDS ORDERED: DULCOLAX SUPPOSITORY 10 MG RECTAL ONE (09:38)
[2019-01-17] MEDS ORDERED: DULCOLAX SUPPOSITORY 10 MG ONE (09:43)
[2019-01-17 12:14] VITALS: BP 160/88
== END 2019-01-17 15:05 | disposition home or self-care (01) ==
LOC: ER 14:39 → ICU 14:39
PROVIDERS: ADMIT Internal Medicine; ATTEND Internal Medicine
DX: R26.89 Other abnormalities of gait and mobility; I10 Essential (primary) hypertension; K21.9 Gastro-esophageal reflux disease without esophagitis; J44.9 Chronic obstructive pulmonary disease, unspecified; R11.2 Nausea with vomiting, unspecified; N20.0 Calculus of kidney; K44.9 Diaphragmatic hernia without obstruction or gangrene; K90.49 Malabsorption due to intolerance, not elsewhere classified; K29.60 Other gastritis without bleeding; R07.89 Other chest pain; R10.84 Generalized abdominal pain; K76.0 Fatty (change of) liver, not elsewhere classified; R94.31 Abnormal electrocardiogram [ECG] [EKG]
CPT/HCPCS: 36415; 74177; 76705; 78227; 80053; 81003; 82150; 82550; 82553; 83690; 83735; 84132; 84484; 85025; 87040; 87338; 88305; 88342; 93005; 94640; 96365; 96367; 96372; 96374; 96375; 97110; 97112; 97162; 99284; A4216; A4217; A4222; C9113; G0378; J0360; J0696; J1885; J2250; J2270; J2405; J2550; J2704; J3480; J3490; J7030; J7512